=== PATIENT | female | born 1975 | race Two or more races ===

== ENCOUNTER 2024-07-01 17:54 | Emergency (ER) | payer OTHER ==
[~2024-07-01] VITALS: Ht 160 cm; Wt 90.3 kg
[2024-07-01] MEDS ORDERED: KETOROLAC TROMETHAMINE 60 MG VIAL IM STA (19:37)
[2024-07-01] MEDS ORDERED: ACETAMINOPHEN WITH CODEINE 1 UDTAB TABLET PO STA (19:38)
[2024-07-01] MEDS ORDERED: DEXAMETHASONE SODIUM PHOSPHATE 4 MG/ML VIAL IM STA (19:38)
== END 2024-07-01 20:50 | disposition home or self-care (01) ==
LOC: ER 17:56
DX: M76.62 Achilles tendinitis, left leg (principal)